=== PATIENT | male | born 1965 | race Caucasian/White ===

== ENCOUNTER 2021-04-25 02:31 | Emergency (ER) | payer OTHER ==
[2021-04-25 03:27] LABS: BASOPHIL 0.9 % (0-2); EOSINOPHIL 3.2 % (0-5); HGB 16.7 g/dl (13.2-18.0); LYMPHOCYTE 28.4 % (15-48); MCH 31.2 pg (25.0-31.0); MCHC 37.1 g/dL (32.0-36.0); MONOCYTE 7.9 % (0-12); MPV 8.7 fL (6.0-9.5); NEUTROPHIL 59.4 % (41-80); NRBC 0; PLT 215 K/uL (150-400); RBC 5.36 M/uL (4.70-6.00); RDW 11.8 % (11.5-14.0); WBC 6.6 K/uL (4.0-10.5)
[2021-04-25 03:47] LABS: ALBUMIN 3.8 g/dL (3.4-5.0); BILIRUBIN - TOTAL 1.2 mg/dL (0.2-1.0); BUN/CREAT RATIO (CALC) 16.1 RATIO; CREATININE 0.87 mg/dL (0.67-1.17); GLOBULIN (CALCULATION) 3.1 g/dL; POTASSIUM 3.7 mmol/L (3.5-5.1); TOTAL PROTEIN 6.9 g/dL (6.4-8.2)
[2021-04-25 05:21] LABS: BILIRUBIN NEGATIVE (NEGATIVE); BLOOD NEGATIVE Ery/uL (NEGATIVE); CLARITY CLEAR (CLEAR); COLOR YELLOW (YELLOW); GLUCOSE (U) NORMAL (NORMAL); LEUKOCYTES NEGATIVE Leu/uL (NEGATIVE); NITRITE NEGATIVE (NEGATIVE); PROTEIN TRACE (LOW) mg/dL (NEGATIVE); pH 8.5 (5.0-9.0)
[2021-04-25 05:33] LABS: AMORPHOUS PHOSPHATE CRYSTALS MODERATE; BACTERIA 2+; MUCOUS TRACE
== END 2021-04-25 09:12 | disposition home or self-care (01) ==
LOC: FER 02:31
PROVIDERS: Emergency Medicine
DX: K59.00 Constipation, unspecified (principal)
CPT/HCPCS: 36415; 80053; 81001; 82150; 83690; 85025; J1885; J2270; J2405; Q9967